=== PATIENT | male | born 1980 | race Caucasian/White ===

== ENCOUNTER 2020-11-02 17:23 | Inpatient (IN) | payer OTHER ==
[~2020-11-02] VITALS: Ht 172.7 cm; Wt 86.2 kg
--- NOTE | 2020-11-02 18:05 | NUR ---
The patient bibs with c/o having swelling and pain on Right side of face started yesterday. Rates pain 10/10. In room air and denies sob. Respiration regular and unlabored. No s/s respiratory distress noted. Will continue to monitor the patient.
--- NOTE | 2020-11-02 18:18 | NUR ---
ESTABLISHED RAC G 18, BLOOD SPECIMEN COLLECTED AND SENT TO THE LAB
[2020-11-02 18:26] LABS: BASOPHILS # (AUTO) 0.1 K/uL (0.0-0.2); BASOPHILS % (AUTO) 0.5 % (0.0-2.0); EOSINOPHILS % (AUTO) 1.1 % (0.0-6.0); HEMATOCRIT 38 % (39-51); HEMOGLOBIN 12.9 g/dL (13.5-17.5); LYMPHOCYTES # (AUTO) 1.8 K/uL (0.8-4.8); LYMPHOCYTES % (AUTO) 12.5 % (20.0-44.0); MEAN CORPUSCULAR HGB CONC 34 g/dl (31.0-36.0); MEAN CORPUSCULAR VOLUME 97 fL (80-96); MONOCYTES % (AUTO) 6.6 % (2.0-12.0); NEUTROPHILS # (AUTO) 11.3 K/uL (1.8-8.9); NEUTROPHILS % (AUTO) 79.3 % (43.0-81.0); PLATELET COUNT (AUTO) 274 K/uL (150-450); RED BLOOD CELL COUNT(AUTO) 3.92 MIL/uL (4.5-6.0); WHITE BLOOD COUNT (AUTO) 14.3 K/uL (4.3-11.0)
[2020-11-02 18:35] LABS: CALCIUM, SERUM 8.8 mg/dL (8.5-10.1); POTASSIUM 3.6 mmol/L (3.5-5.1)
[2020-11-02] MEDS ORDERED: IOHEXOL-300 100 ML VIAL IV ONE (18:47)
[2020-11-02] MEDS ORDERED: CT SWABBABLE VALVE TRANS SET 1 EA INFUS.SET MC ONE (18:48)
[2020-11-02] MEDS ORDERED: IV NS 0.9% 250 ML IV ONE (18:48)
[2020-11-02] MEDS ORDERED: MORPHINE SULFATE INJ 10 MG/ML DISP.SYRIN IV ONE ×3 (19:30→22:00)
[2020-11-02] MEDS ORDERED: ONDANSETRON HCL/PF 4 MG/2 ML VIAL IV ONE (19:30)
[2020-11-02] MEDS ORDERED: CLINDAMYCIN 900 MG in IV D5W 100 ML IV ONE (19:30)
--- NOTE | 2020-11-02 19:50 | NUR ---
CALLED [facility], PAGED DR RANGEL
[2020-11-02] MEDS ORDERED: CLINDAMYCIN 900 MG/6 ML VIAL ONE (19:52)
[2020-11-02] MEDS ORDERED: MORPHINE SULFATE INJ 4 MG/ML DISP.SYRIN ONE ×2 (19:55→22:02)
[2020-11-02] MEDS ORDERED: MAGNESIUM HYDROXIDE 30 ML UDC PO PRN (21:00)
[2020-11-02] MEDS ORDERED: AZTREONAM 2 G in IV NS 0.9% 100 ML IV SCH (21:00)
[2020-11-02] MEDS ORDERED: ZOLPIDEM TARTRATE 5 MG TABLET PO PRN (21:00)
[2020-11-02] MEDS ORDERED: MAG HYDROX/AL HYDROX/SIMETH 30 ML UDC PO PRN (21:00)
[2020-11-02] MEDS ORDERED: Z GUARD REMEDY 2 OZ OINT TP PRN (21:00)
[2020-11-02] MEDS ORDERED: ONDANSETRON HCL/PF 4 MG/2 ML VIAL IVP PRN (21:00)
[2020-11-02] MEDS ORDERED: ACETAMINOPHEN 325 MG TABLET PO PRN (21:00)
--- NOTE | 2020-11-03 00:16 | NUR ---
MS BED : 321-2
--- NOTE | 2020-11-03 00:26 | NUR ---
report received from Wis[facility].
--- NOTE | 2020-11-03 00:30 | NUR ---
REPORT GIVEN TO ARIEL CABA FOR NASIM.
--- NOTE | 2020-11-03 00:39 | NUR ---
PT WAS TRANSFERRED TO 321 UNDER ACLS
--- NOTE | 2020-11-03 00:45 | NUR ---
MS ADMISSION NOTE RECEIVED PATIENT AT THIS TIME. CAME IN VIA GURNEY, PATIENT AMBULATORY WITH STEADY GAIT. NO S/S OF APPARENT DISTRESS. C/O PAIN IN HIS RIGHT SIDE OF FACE, NOTED TO BE SWELLING. PATIENT REPORTS NOT EATING ANYTHING YET BECAUSE OF PAIN IN HIS FACE AND HAVE NOT TRIED CHEWING ON HIS LEFT SIDE. V/S FOLLOWS: BP- 148/95, P- 88, RR- 20, ANDO2 SATURATION OF 100% ON ROOM AIR. WT- 190 LBS. AWAITING PHARMACY TO VERIFY ORDERS.
[2020-11-03 01:00] VITALS: BP 148/95
[2020-11-03] MEDS: HYDROCODONE/APAP 10/325MG TABLET PO PRN ×3 (01:05→16:01)
--- NOTE | 2020-11-03 01:05 | NUR ---
pt. complaint of 9/10 pain in his right face. burning sensation. given norco PRN will monitor.
[2020-11-03] MEDS: IV NS 0.9% 1,000 ML IV PRN ×2 (01:16→15:08)
[2020-11-03] MEDS ORDERED: VANCOMYCIN 1.5 GM in IV D5W 500ml IV ONE (01:30)
--- NOTE | 2020-11-03 01:33 | NUR ---
ms rn note Called Dr. Weber if he wants the Vanco and Azactam ordered in ER given on the floor. awaiting for Doctors order.
[2020-11-03] MEDS ORDERED: VANCOMYCIN 1 GM VIAL ONE ×2 (02:14→02:16)
--- NOTE | 2020-11-03 02:15 | NUR ---
miscellaneous order Rajani and Trixie xiong to give per doctor.
[2020-11-03] MEDS ORDERED: AZTREONAM 1 G VIAL IV SCH (02:30)
--- NOTE | 2020-11-03 02:30 | NUR ---
azactam not given. not available on floor per charge nurseLinda just give the vanco. Vanco given.
--- NOTE | 2020-11-03 02:31 | NUR ---
Linda, charge nurse faxed nursing cooler supervisor to lacie Marcum to the floor. awaiting.
--- NOTE | 2020-11-03 03:10 | NUR ---
payal duplicates - non-admin
[2020-11-03 03:28] VITALS: BP 148/95
[2020-11-03] MEDS: MORPHINE SULFATE INJ 2 MG/ML DISP.SYRIN IV PRN ×4 (05:41→21:02)
[2020-11-03] MEDS ORDERED: AZTREONAM 1 G VIAL ONE (06:06)
[2020-11-03 06:25] LABS: BASOPHILS % (AUTO) 0.2 % (0.0-2.0); EOSINOPHILS % (AUTO) 1.3 % (0.0-6.0); HEMATOCRIT 37 % (39-51); HEMOGLOBIN 12.4 g/dL (13.5-17.5); LYMPHOCYTES # (AUTO) 2.1 K/uL (0.8-4.8); MEAN CORPUSCULAR HGB CONC 34 g/dl (31.0-36.0); MEAN CORPUSCULAR VOLUME 99 fL (80-96); MONOCYTES # (AUTO) 0.8 K/uL (0.1-1.30); MONOCYTES % (AUTO) 6.2 % (2.0-12.0); NEUTROPHILS # (AUTO) 10.6 K/uL (1.8-8.9); NEUTROPHILS % (AUTO) 77.3 % (43.0-81.0); PLATELET COUNT (AUTO) 257 K/uL (150-450); WHITE BLOOD COUNT (AUTO) 13.7 K/uL (4.3-11.0)
[2020-11-03 06:26] LABS: CALCIUM, SERUM 8.3 mg/dL (8.5-10.1); CREATININE 0.9 mg/dL (0.6-1.3); MAGNESIUM 2.3 mg/dL (1.8-2.4); PHOSPHORUS 3.1 mg/dL (2.5-4.9); POTASSIUM 3.5 mmol/L (3.5-5.1)
--- NOTE | 2020-11-03 07:02 | NUR ---
conjugated 2 g of azactam in 100ml ns. administered.
[2020-11-03 07:06] LABS: THYROID STIMULATING HORMONE 2.545 uIU/mL (0.358-3.74)
--- NOTE | 2020-11-03 07:24 | NUR ---
no significant change. report given to Gerbie for cont. of care
--- NOTE | 2020-11-03 07:33 | NUR ---
RN OPENING NOTES Patient seen comfortably lying in bed, no apparent distress noted, respirations even and unlabored, no SOB, denies any pain or discomfort at this time. Safety precautions maintained, brakes locked, side rails up X 2, call light left within reach, will monitor closely for any changes.
--- NOTE | 2020-11-03 08:58 | NUR ---
Received a call from pharmacy regarding patient's allergic reaction to Penicillin. Patient interviewed about the symptoms usually experienced, patient stated that his "throat closes up" and it "gets really bad", pharmacy made aware,
[2020-11-03] MEDS: VANCOMYCIN 1.25 GM in IV D5W 250 ML IV SCH ×2 (10:29→19:18)
[2020-11-03] MEDS: MEROPENEM 1 G in IV NS 0.9% 100 ML IV SCH ×3 (12:54→22:06)
[2020-11-03] MEDS ORDERED: AZTREONAM 2 G in IV NS 0.9% 100 ML IV SCH (13:00)
--- NOTE | 2020-11-03 13:08 | NUR ---
RN NOTES SPOKE W/ DIALYSIS NURSE FROM [facility]; WILL DIALYZE PATIENT LATER TODAY. Addendum: 11/03/20 at 1855 by GILBERTO MONTOYA RN WRONG DOCUMENTATION
[2020-11-03] MEDS: HYDROCODONE/APAP 5/325MG TABLET PO PRN (18:24)
--- NOTE | 2020-11-03 18:48 | NUR ---
RN CLOSING NOTES Patient in bed, AO X 4, no SOB, respirations even and unlabored, no apparent distress noted. Pain medications given as needed per MD order, tolerating well. All due medications given per MD order, all needs attended, kept clean and dry, call light left within reach, safety precautions maintained, brakes locked, side rails up X 2, will endorse to next shift for continuity of care.
[2020-11-03 20:00] VITALS: BP 127/91
--- NOTE | 2020-11-03 21:58 | NUR ---
MS/TELE/RN DURING INITIAL SHIFT ROUNDING AT 1930, PATIENT WAS LYING IN BED APPEAR SLEEPING, APPEAR COMFORTABLE, NO DISTRESS NOTED, CALL LIGHT IN REACH. WILL MONITOR.
--- NOTE | 2020-11-03 23:00 | NUR ---
MS/TELE/RN PATIENT IS SLEEPING AT THIS TIME, APPEAR COMFORTABLE, NO DISTRESS NOTED, CALL LIGHT IN REACH. WILL CONTINUE TO MONITOR.
[2020-11-04] MEDS: HYDROCODONE/APAP 10/325MG TABLET PO PRN ×4 (00:53→19:54)
--- NOTE | 2020-11-04 00:55 | NUR ---
RN NOTE PT C/O 9/10 PAIN TO R-SIDE OF FACE, GIVEN NORCO 1 TAB ORDERED.
[2020-11-04] MEDS: MORPHINE SULFATE INJ 2 MG/ML DISP.SYRIN IV PRN ×4 (03:17→23:24)
--- NOTE | 2020-11-04 03:21 | NUR ---
RN NOTE PT C/O SEVERE PAIN TO R-SIDE OF FACE 9/10 LEVEL. INFORMED RN ASSIGNED WHO IS WITH ANOTHER PT AT THIS TIME. I GAVE MORPHINE 2MG IV ORDERED. MADE PT COMFORTABLE IN BED.
[2020-11-04] MEDS: VANCOMYCIN 1.25 GM in IV D5W 250 ML IV SCH ×3 (03:40→19:42)
[2020-11-04] MEDS: MEROPENEM 1 G in IV NS 0.9% 100 ML IV SCH ×3 (05:38→21:44)
--- NOTE | 2020-11-04 06:04 | NUR ---
MS/TELE/RN PATIENT IS STILL SLEEPING AT THIS TIME, APPEAR COMFORTABLE, NO SIGNS OF DISTRESS NOTED, CALL LIGHT IN REACH, ALL NEEDS ATTENDED AT THIS TIME, WILL CONTINUE TO MONITOR.
--- NOTE | 2020-11-04 07:20 | NUR ---
RN NOTES PATIENT SEEN IN BED RESTING, AWAKE AND VERBALLY RESPONSIVE. A/O X4, ABLE TO MAKE NEEDS KNOWN. SEEN HOLDING TOWEL AT HIS FACE, PER PATIENT, HE SAID THAT "MY ABSCESS POPPED", W/ SCANT AMOUNT OF BLOOD ON HIS GOWN. NOT IN ACUTE DISTRESS. RIGHT EYE MUCH LESS SWOLLEN AT THIS TIME AND PATIENT FEELS MUCH BETTER. REQUESTED FOR PAIN MEDICATION AND WILL ASSESS ACCORDINGLY. SAFETY MEASURES IN PLACE. IV LINE INTACT AND PATENT. WILL CONTINUE TO MONITOR.
[2020-11-04 07:36] LABS: BASOPHILS # (AUTO) 0.1 K/uL (0.0-0.2); BASOPHILS % (AUTO) 0.4 % (0.0-2.0); EOSINOPHILS % (AUTO) 1.8 % (0.0-6.0); HEMATOCRIT 38 % (39-51); HEMOGLOBIN 12.9 g/dL (13.5-17.5); LYMPHOCYTES # (AUTO) 2.2 K/uL (0.8-4.8); LYMPHOCYTES % (AUTO) 17.3 % (20.0-44.0); MEAN CORPUSCULAR HGB CONC 34 g/dl (31.0-36.0); MEAN CORPUSCULAR VOLUME 98 fL (80-96); MONOCYTES # (AUTO) 0.7 K/uL (0.1-1.30); MONOCYTES % (AUTO) 5.9 % (2.0-12.0); NEUTROPHILS # (AUTO) 9.4 K/uL (1.8-8.9); NEUTROPHILS % (AUTO) 74.6 % (43.0-81.0); PLATELET COUNT (AUTO) 290 K/uL (150-450); RED BLOOD CELL COUNT(AUTO) 3.88 MIL/uL (4.5-6.0); WHITE BLOOD COUNT (AUTO) 12.5 K/uL (4.3-11.0)
[2020-11-04 07:50] LABS: CREATININE 0.8 mg/dL (0.6-1.3); POTASSIUM 3.9 mmol/L (3.5-5.1)
[2020-11-04 08:00] VITALS: BP 137/100
[2020-11-04] MEDS: IV NS 0.9% 1,000 ML IV PRN (10:50)
--- NOTE | 2020-11-04 11:01 | NUR ---
RN NOTES PATIENT WAS SEEN BY DR. GOODRICH EARLIER TODAY W/ ORDERS NOTED. FACIAL SWELLING HAS SUBSIDED ON THE RIGHT SIDE OF FACE AND PATIENT ABLE TO SEE MUCH BETTER ON RIGHT EYE. STILL W/ COMPLAINT OF PAIN BUT MANAGEABLE W/ PAIN MEDICATIONS. WILL CONTINUE TO MONITOR.
[2020-11-04] MEDS: HYDROCODONE/APAP 5/325MG TABLET PO PRN (11:48)
[2020-11-04 16:00] VITALS: BP 158/88
--- NOTE | 2020-11-04 18:39 | NUR ---
RN NOTES BOAT TESTER AT BEDSIDE FOR BLOOD DRAW FOR [facility]. PATIENT RESTING IN BED AND WANTS TO BE UNHOOKED FROM IVF HE WANTS TO GO TO THE BATHROOM. NO ACUTE DISTRESS AT THIS TIME. PATIENT VERBALIZES RELIEF FROM FACIAL SWELLING. SAFETY MEASURES MAINTAINED. WILL ENDORSE ACCORDINGLY.
[2020-11-04] MEDS: MUPIROCIN OINT 2% 22 GM TUBE TP SCH (18:55)
--- NOTE | 2020-11-04 19:56 | NUR ---
MS/TELE/RN PATIENT IS IN BED AWAKE, ALERT, ORIENTED, C/O PAIN 8/10, MEDICATED WITH NORCO 10 MG PO ORDERED, NO DISTRESS NOTED, IVF INFUSING, CALL LIGHT IN REACH. WILL MONITOR.
[2020-11-04 20:00] VITALS: BP 144/92
--- NOTE | 2020-11-04 23:24 | NUR ---
MS RN Notes Patient c/o of 8/10 throbbing pain on the right side of his face. Patient was given 2mg of morphine IV.
[2020-11-05] MEDS: VANCOMYCIN 1.25 GM in IV D5W 250 ML IV SCH ×2 (03:45→10:03)
[2020-11-05] MEDS: MEROPENEM 1 G in IV NS 0.9% 100 ML IV SCH ×3 (05:48→20:10)
[2020-11-05] MEDS: MORPHINE SULFATE INJ 2 MG/ML DISP.SYRIN IV PRN (05:56)
[2020-11-05 06:11] LABS: BASOPHILS % (AUTO) 0.3 % (0.0-2.0); EOSINOPHILS % (AUTO) 2.2 % (0.0-6.0); HEMATOCRIT 39 % (39-51); HEMOGLOBIN 13.4 g/dL (13.5-17.5); LYMPHOCYTES # (AUTO) 1.6 K/uL (0.8-4.8); LYMPHOCYTES % (AUTO) 16.3 % (20.0-44.0); MEAN CORPUSCULAR HGB CONC 35 g/dl (31.0-36.0); MEAN CORPUSCULAR VOLUME 97 fL (80-96); MONOCYTES # (AUTO) 0.5 K/uL (0.1-1.30); MONOCYTES % (AUTO) 5.1 % (2.0-12.0); NEUTROPHILS # (AUTO) 7.6 K/uL (1.8-8.9); NEUTROPHILS % (AUTO) 76.1 % (43.0-81.0); PLATELET COUNT (AUTO) 291 K/uL (150-450); RED BLOOD CELL COUNT(AUTO) 4.01 MIL/uL (4.5-6.0)
[2020-11-05] MEDS: MUPIROCIN OINT 2% 22 GM TUBE TP SCH ×2 (06:34→18:06)
--- NOTE | 2020-11-05 06:36 | NUR ---
MS/TELE/RN PATIENT IS AWAKE, COMFORTABLE, NO DISTRESS NOTED, CALL LIGHT IN REACH, ALL NEEDS ATTENDED AT THIS TIME, WILL CONTINUE TO MONITOR.
[2020-11-05 06:42] LABS: CALCIUM, SERUM 9.1 mg/dL (8.5-10.1); CREATININE 0.8 mg/dL (0.6-1.3); POTASSIUM 3.7 mmol/L (3.5-5.1)
--- NOTE | 2020-11-05 07:15 | NUR ---
RN NOTES RECEIVED PATIENT RESTING IN BED, AWAKE AND VERBALLY RESPONSIVE. A/O X4, ABLE TO MAKE NEEDS KNOWN. SEEN HOLDING TOWEL AT HIS FACE, PER PATIENT, HE SAID THAT "MY ABSCESS POPPED", W/ SCANT AMOUNT OF BLOOD ON HIS GOWN. PATIENT IS BREATHING EVENLY AND NONLABORED ON ROOM AIR. PATIENT IS NOT IN ACUTE DISTRESS. RIGHT EYE SWOLLEN. DENIES PAIN AT THIS TIME PATIENT HAS IV ACCESS TO RAC # 18 GAUGE RUNNING NS @ 75ML/HR. SAFETY MEASURES IN PLACE, BED LOW LOCKED AND CALL LIGHT WITHIN REACH. WILL CONTINUE TO MONITOR.
[2020-11-05] MEDS: HYDROCODONE/APAP 10/325MG TABLET PO PRN ×3 (07:41→20:17)
--- NOTE | 2020-11-05 07:51 | NUR ---
RN NOTE PATIENT COMPLAINED OF SEVERE PAIN 11/03. ASKED FOR PRN PAIN MEDICATION. VITALS WNL, WILL GIVE PRN PAIN MEDICATION ORDERED. MD AT BEDSIDE ORDERED WOUND CULTURE, OBTAINED AND WILL CONTINUE TO MONITOR
[2020-11-05 08:00] VITALS: BP 151/81
--- NOTE | 2020-11-05 12:00 | NUR ---
RN NOTE PATIENT COMPLAINED OF SEVERE PAIN 11/03. ASKED FOR PRN PAIN MEDICATION. VITALS WNL, WILL GIVE PRN PAIN MEDICATION ORDERED.
[2020-11-05 16:00] VITALS: BP 134/74
[2020-11-05] MEDS: VANCOMYCIN 1 GM in IV D5W 250 ML IV SCH (18:00)
--- NOTE | 2020-11-05 18:23 | NUR ---
MS RN CLOSING NOTES PATIENT RESTING IN BED, AWAKE AND VERBALLY RESPONSIVE. A/O X4, ABLE TO MAKE NEEDS KNOWN. PATIENT'S ABSCESS CONTINUES TO DRAIN SEROSANGUINEOUS FLUID, MD AWARE NO DRESSING AT THIS TIME, ALLOW TO DRAIN. PATIENT IS BREATHING EVENLY AND NONLABORED ON ROOM AIR. PATIENT IS NOT IN ACUTE DISTRESS. ALL MEDICATIONS GIVEN ORDERED. DENIES PAIN AT THIS TIME PATIENT HAS IV ACCESS TO RAC # 18 GAUGE RUNNING NS @ 75ML/HR. SAFETY MEASURES IN PLACE, BED LOW LOCKED AND CALL LIGHT WITHIN REACH. WILL ENDORSE TO ONCOMING SHIFT
[2020-11-05 20:04] VITALS: BP 141/88
[2020-11-06] MEDS: VANCOMYCIN 1 GM in IV D5W 250 ML IV SCH ×3 (03:11→18:06)
[2020-11-06] MEDS: MEROPENEM 1 G in IV NS 0.9% 100 ML IV SCH ×3 (05:21→21:38)
[2020-11-06] MEDS: HYDROCODONE/APAP 10/325MG TABLET PO PRN ×2 (05:29→19:58)
[2020-11-06] MEDS: MUPIROCIN OINT 2% 22 GM TUBE TP SCH ×2 (05:31→17:43)
--- NOTE | 2020-11-06 06:52 | NUR ---
Patient has been A&Ox4. VSS. RAC IV infiltrated, changed to LAC #20G. Refused AM labs because he was tired of being poked. Asked to try again with 10am Vanco blood draw. Tolerating IV ABX well, no adverse side effects.
--- NOTE | 2020-11-06 07:05 | NUR ---
MS RN OPENING NOTES RECEIVED PATIENT RESTING IN BED, AWAKE AND VERBALLY RESPONSIVE. A/O X4, ABLE TO MAKE NEEDS KNOWN. PATIENT'S ABSCESS CONTINUES TO DRAIN SEROSANGUINEOUS FLUID, MD AWARE NO DRESSING AT THIS TIME, ALLOW TO DRAIN. PATIENT IS BREATHING EVENLY AND NONLABORED ON ROOM AIR. PATIENT IS NOT IN ACUTE DISTRESS. DENIES PAIN AT THIS TIME PATIENT HAS IV ACCESS TO RAC # 18 GAUGE RUNNING NS @ 75ML/HR. SAFETY MEASURES IN PLACE, BED LOW LOCKED AND CALL LIGHT WITHIN REACH. WILL CONTINUE TO MONITOR
[2020-11-06 08:00] VITALS: BP 111/88
[2020-11-06 10:57] LABS: BASOPHILS # (AUTO) 0.1 K/uL (0.0-0.2); BASOPHILS % (AUTO) 0.7 % (0.0-2.0); EOSINOPHILS % (AUTO) 2.1 % (0.0-6.0); HEMATOCRIT 41 % (39-51); HEMOGLOBIN 14.2 g/dL (13.5-17.5); LYMPHOCYTES % (AUTO) 24.1 % (20.0-44.0); MEAN CORPUSCULAR HGB CONC 35 g/dl (31.0-36.0); MEAN CORPUSCULAR VOLUME 97 fL (80-96); MONOCYTES # (AUTO) 0.9 K/uL (0.1-1.30); MONOCYTES % (AUTO) 7.2 % (2.0-12.0); NEUTROPHILS # (AUTO) 8.1 K/uL (1.8-8.9); NEUTROPHILS % (AUTO) 65.9 % (43.0-81.0); PLATELET COUNT (AUTO) 388 K/uL (150-450); RED BLOOD CELL COUNT(AUTO) 4.22 MIL/uL (4.5-6.0); WHITE BLOOD COUNT (AUTO) 12.3 K/uL (4.3-11.0)
[2020-11-06 11:13] LABS: CALCIUM, SERUM 9.4 mg/dL (8.5-10.1); POTASSIUM 3.2 mmol/L (3.5-5.1)
[2020-11-06 16:00] VITALS: BP 136/89
--- NOTE | 2020-11-06 19:40 | NUR ---
MSRN FULLY AWAKE. FACIAL SWELLING SUBSIDING. OM ANTIBIOTICS. PRESENT IVF INFUSING WELL.VIA LEFT AC. VERBALIZES FACIAL CELLULITIS PAIN, NORCO ADMINISTERED. ALL NEEDS ATTENDED. V/S STABLE
[2020-11-06 20:00] VITALS: BP 142/94
--- NOTE | 2020-11-06 23:00 | NUR ---
MSRN STILL AWAKE, STATED WILL CALL FOR PAIN MEDS IF PAIN WORSENS ON HIS FACE. EAGER TO GO HOME. NEEDED TO COMPLETE IV ANTIBIOTICS.
[2020-11-07] MEDS: HYDROCODONE/APAP 10/325MG TABLET PO PRN (01:44)
[2020-11-07] MEDS: VANCOMYCIN 1 GM in IV D5W 250 ML IV SCH ×2 (02:23→11:03)
[2020-11-07] MEDS: MEROPENEM 1 G in IV NS 0.9% 100 ML IV SCH (06:26)
--- NOTE | 2020-11-07 06:55 | NUR ---
MSRN STATED DID NOT SLEEP ALL NIGHT. EAGER TO GO HOME. PRESENT IVF INFUSING WELL.
--- NOTE | 2020-11-07 07:30 | NUR ---
m/s alligator shear operator: notes received pt in bed awake, a/ox4 and anxious to go home as soon as possible, stated, "i need to go to work, i want to go home now." informed pt that need order and prescription from the doctor. pt verbalized understanding. will continue to monitor.
[2020-11-07 07:37] LABS: BASOPHILS # (AUTO) 0.1 K/uL (0.0-0.2); BASOPHILS % (AUTO) 0.8 % (0.0-2.0); EOSINOPHILS % (AUTO) 2.3 % (0.0-6.0); HEMATOCRIT 36 % (39-51); HEMOGLOBIN 12.7 g/dL (13.5-17.5); LYMPHOCYTES # (AUTO) 1.9 K/uL (0.8-4.8); LYMPHOCYTES % (AUTO) 20.7 % (20.0-44.0); MEAN CORPUSCULAR HGB CONC 35 g/dl (31.0-36.0); MEAN CORPUSCULAR VOLUME 95 fL (80-96); MONOCYTES # (AUTO) 0.6 K/uL (0.1-1.30); MONOCYTES % (AUTO) 6.2 % (2.0-12.0); NEUTROPHILS # (AUTO) 6.4 K/uL (1.8-8.9); PLATELET COUNT (AUTO) 314 K/uL (150-450); RED BLOOD CELL COUNT(AUTO) 3.78 MIL/uL (4.5-6.0); WHITE BLOOD COUNT (AUTO) 9.1 K/uL (4.3-11.0)
[2020-11-07 08:00] VITALS: BP 138/90
[2020-11-07 08:13] LABS: CREATININE 0.8 mg/dL (0.6-1.3)
--- NOTE | 2020-11-07 08:30 | NUR ---
m/s package worker: notes called and pt wants me to speed up his discharge. dr. olivia notified, left message thru exchange and texted via secured line. will continue to monitor.
--- NOTE | 2020-11-07 10:30 | NUR ---
m/s care advocate: notes raul ([email or web address]) talking to pt re: pt's concerns about his missing social security card. pt still anxious to go home as soon as possible. left another message to dr. olivia.
--- NOTE | 2020-11-07 11:29 | NUR ---
SS Consult: SS Consult requested for Social Security card replacement. MARGARETH met with pt. bedside and provided pt. with SS Card application and instructions. Pt. requested verification of admission letter to use as proof of identity for this application. MARGARETH educated pt. that a verification of admission letter from a hospital is not listed as a viable proof of identity listed on application. Pt. stated he was told by office that he may use this. SW will follow up and provide verification of admission letter as requested.
--- NOTE | 2020-11-07 11:45 | NUR ---
m/s re etcher: md visit seen and examined by dr. olivia with order to d'c home. all concerns and questions answered by md. pt called his friend to pick him up. antibiotic vancomycin infusing at this time. pt can go home in 1-2 hours per md. pt verbalized understanding.
[2020-11-07] MEDS ORDERED: CLIN300C12 PO (11:46)
--- NOTE | 2020-11-07 12:50 | NUR ---
m/s iron erector: notes pt wants to shower and wants his iv removed. h/l removed with tip intact. awaiting for friend to pick him up.
--- NOTE | 2020-11-07 13:30 | NUR ---
m/s pin drafting machine tender: notes discharge instructions with e script prescription given to pt and verbalized understanding. warp picker on the way per pt.
--- NOTE | 2020-11-07 13:40 | NUR ---
m/s senior technical analyst: discharged discharged home accompanied by friend via private car in stable condition with all d'c papers and valuables.
--- NOTE | 2020-11-07 15:32 | NUR ---
SS Note: SW attempted to meet with pt. to provided verification of admission letter. However, per nursing pt. has already been discharged.
== END 2020-11-07 13:40 | disposition home or self-care (01) | DRG 720 ==
LOC: ER 17:35 → MED 11-03 00:24
PROVIDERS: ATTEND Student in an Organized Health Care Education/Training Program
DX: A41.9 Sepsis, unspecified organism (principal); H05.011 Cellulitis of right orbit; D64.9 Anemia, unspecified; L03.211 Cellulitis of face; Z20.822 Contact with and (suspected) exposure to COVID-19; D72.829 Elevated white blood cell count, unspecified; F12.90 Cannabis use, unspecified, uncomplicated; L02.01 Cutaneous abscess of face; B95.62 Methicillin resistant Staphylococcus aureus infection as the cause of diseases classified elsewhere
CPT/HCPCS: 36415; 70487-TC; 80048-TC; 80061-TC; 80202-TC; 83605-TC; 83735-TC; 84100-TC; 84443-TC; 85025-TC; 87040-TC; 87070-TC; 87081-TC; C9803; G0378; J2185; J2270; J2405; J3370; J3490; J7030; J7050; J7060; Q9967